=== PATIENT | female | born 1955 | race African-American/Black ===

== ENCOUNTER 2017-04-14 20:33 | Emergency (ER) | payer SELFPAY | END 2017-04-14 23:05 | disposition home or self-care (01) | LOC: D.ER 20:33 | DX: T63.441A Toxic effect of venom of bees, accidental (unintentional), initial encounter (principal); Y92.029 Unspecified place in mobile home as the place of occurrence of the external cause; F17.200 Nicotine dependence, unspecified, uncomplicated ==

== ENCOUNTER → 2018-12-10 12:11 | Outpatient (CLI) | payer MEDICAID | END | disposition home or self-care (01) | LOC: D.MRI 12:11 | PROVIDERS: ATTEND Orthopaedic Surgery | DX: M90.572 Osteonecrosis in diseases classified elsewhere, left ankle and foot (principal) ==

== ENCOUNTER → 2019-04-20 14:48 | Outpatient (CLI) | payer MEDICAID | END | disposition home or self-care (01) | LOC: D.MRI 04-19 15:00 | PROVIDERS: ATTEND Clinical Nurse Specialist Family Health | DX: M54.16 Radiculopathy, lumbar region (principal) ==

== ENCOUNTER → 2020-03-20 08:45 | Outpatient (CLI) | payer OTHER | END | disposition home or self-care (01) | LOC: D.MRI 02-24 11:00 | PROVIDERS: ATTEND Orthopaedic Surgery | DX: M54.16 Radiculopathy, lumbar region (principal) ==